=== PATIENT | female | born 1975 | race Native Hawaiian/Other Pacific Islander ===

== ENCOUNTER 2017-06-10 13:59 | Emergency (ER) | payer OTHER ==
[~2017-06-10] VITALS: Ht 157.5 cm; Wt 68.0 kg
[2017-06-10 14:49] VITALS: TEMP 98.8
[2017-06-10 16:17] LABS: PLATELET COUNT 301 K/uL (152-353)
[2017-06-10 16:35] VITALS: BP 132/87
== END 2017-06-10 16:40 | disposition home or self-care (01) ==
LOC: ED 13:59
PROVIDERS: Internal Medicine
DX: J06.9 Acute upper respiratory infection, unspecified (principal); B34.9 Viral infection, unspecified
CPT/HCPCS: 36415; 85027; 87804; 99283